=== PATIENT | male | born 1950 | race Caucasian/White ===

== ENCOUNTER 2017-06-24 15:05 | Emergency (ER) | payer MEDICARE ==
[2017-06-24] MEDS ORDERED: Aspirin 81 MG Tab.Chew PO ONE ×2 (15:08→15:10)
[2017-06-24] MEDS ORDERED: Sodium Chloride 0.9% 10 ML Syringe FLUSH PRN (15:12)
[2017-06-24] MEDS ORDERED: Sodium Chloride 0.9% 2.5 ML Syringe FLUSH PRN (15:12)
--- NOTE | 2017-06-24 15:21 | EDM.PDOC ---
<Dilcia Acosta - Last Filed: 06/24/17 17:47> ED HPI GENERAL MEDICAL PROBLEM - General Chief Complaint: Chest Pain Stated Complaint: CHEST PAIN Time Seen by Provider: 06/24/17 15:10 Source of Information: Reports: Patient History Limitations: Reports: No Limitations - History of Present Illness INITIAL COMMENTS - FREE TEXT/NARRATIVE: HISTORY AND PHYSICAL: History of present illness: [Patient comes to the emergency room with complaints of tightness in his chest. Onset was approximately one hour ago when he was pulling fence posts. He felt a tightness in his mid chest, that he describes as sharp and crushing, immediately after pulling out a fence post. Denies radiation of pain to his neck , jaw, shoulder or back. Describes as a feeling of indigestion, or like a gas bubble stuck in his upper abdomen but he is unable to belch. Had some shortness of breath with the onset of pain. He drove himself to the ER after taking 2 baby aspirin at home. Denies any cardiac history. Does not take any medications regularly. Review of systems: As per history of present illness and below otherwise all systems reviewed and negative. Past medical history: As per history of present illness and as reviewed below otherwise noncontributory. Surgical history: As per history of present illness and as reviewed below otherwise noncontributory. Social history: No reported history of drug or alcohol abuse. Family history: As per history of present illness and as reviewed below otherwise noncontributory. Physical exam: Gen.: Well-developed well-nourished male in no acute distress. Is diaphoretic upon presentation to the ER. HEENT: Atraumatic, normocephalic. Oral mucous membranes moist. Lungs: Clear to auscultation, breath sounds equal bilaterally. Heart: S1S2, regular rate rhythm. No murmur gallop click or rub. Abdomen: Soft, nondistended, nontender. Negative for masses guarding or rebound. Pelvis: Stable nontender. Genitourinary: Deferred. Rectal: Deferred. Extremities: Atraumatic, negative for cords or calf pain. Neurovascular unremarkable. Neuro: Awake, alert, oriented. Motor and sensory unremarkable throughout. Exam nonfocal. Diagnostics: [EKG, chest x-ray, CBC, CMP, troponin, PT/INR] Therapeutics: [Aspirin 162 mg, nitroglycerin 0.4 mg every 5 minutes, heparin 5000 units, TnKase] Impression: [chest pain] Plan: [ Dr. Celestin, jammer hooker, is in the emergency room and agrees to consult on this patient. He reviews all EKGs and is informed of negative troponin. Pain is not improved with morphine 2 mg or nitroglycerin 3. Heparin 5000 IU given IV. Patient continues to have 4-5/[address] Brantley initiates thrombolytics while patient is in the ER. Patient will be transferred to [facility] to Dr. Catalan in the ER after phone consultation with Dr. Valencia, jammer hooker. Patient will be flown via helicopter. Patient in agreement with this plan. All of his questions are answered and concerns are addressed. ] Definitive disposition and diagnosis as appropriate pending reevaluation and review of above. Right Chest Pain Score (Numeric/FACES): 5 - Related Data Allergies Allergy/AdvReac Type Severity Reaction Status Date / Time No Known Allergies Allergy Verified 06/24/17 15:08 Home Meds: Home Meds . [No Known Home Meds] 06/24/17 [History] Past Medical History - Past Health History Medical/Surgical History: Denies Medical/Surgical History ED ROS GENERAL - Review of Systems Review Of Systems: ROS reveals no pertinent complaints other than HPI. ED EXAM, GENERAL - Physical Exam Exam: See Below Course - Vital Signs Last Recorded V/S: Last Vital Signs Temp 35.8 C 06/24/17 15:08 Pulse 99 06/24/17 15:08 Resp 20 06/24/17 15:08 BP 158/108 H 06/24/17 15:42 Pulse Ox 99 06/24/17 15:08 - Orders/Labs/Meds Orders: Active Orders 24 hr Category Date Time Status EKG 12 Lead [EKG Documentation Completion] [RC] STAT Care 06/24/17 15:48 Active EKG Documentation Completion [RC] STAT Care 06/24/17 15:12 Active EKG Documentation Completion [RC] STAT Care 06/24/17 17:08 Active Heparin Sod,Pork In 0.45% Nacl [Heparin-1/2Ns 25,000 Med 06/24/17 17:45 Active Units/500] 25,000 unit in 500 ml IV TITRATE Sodium Chloride 0.9% [Saline Flush] Med 06/24/17 15:12 Active 10 ml FLUSH ASDIRECTED PRN Sodium Chloride 0.9% [Saline Flush] Med 06/24/17 15:12 Active 2.5 ml FLUSH ASDIRECTED PRN Peripheral IV Insertion Adult [OM.PC] Stat Oth 06/24/17 15:12 Ordered Medication Orders Heparin Sod,Pork In 0.45% Nacl (Heparin-1/2ns 25,000 Units/500) 25,000 unit in 500 mls @ 28.304 mls/hr IV TITRATE RENEE; 12 UNITS/KG/HR PRN Reason: Protocol Sodium Chloride (Saline Flush) 10 ml FLUSH ASDIRECTED PRN PRN Reason: Keep Vein Open Sodium Chloride (Saline Flush) 2.5 ml FLUSH ASDIRECTED PRN PRN Reason: Keep Vein Open Labs: Laboratory Tests 06/24/17 06/24/17 06/24/17 Range/Units 15:10 15:10 15:10 WBC 11.90 H (4.0-11.0) K/uL RBC 5.09 (4.50-5.90) M/uL Hgb 15.0 (13.0-17.0) g/dL Hct 44.1 (38.0-50.0) % MCV 86.6 (80.0-98.0) fL MCH 29.5 (27.0-32.0) pg MCHC 34.0 (31.0-37.0) g/dL RDW Std Deviation 48.3 (28.0-62.0) fl RDW Coeff of Liliana 15 (11.0-15.0) % Plt Count 276 (150-400) K/uL MPV 10.20 (7.40-12.00) fL Neut % (Auto) 72.2 (48.0-80.0) % Lymph % (Auto) 17.0 (16.0-40.0) % [place] % (Auto) 9.1 (0.0-15.0) % Eos % (Auto) 1.4 (0.0-7.0) % Baso % (Auto) 0.3 (0.0-1.5) % Neut # (Auto) 8.6 H (1.4-5.7) K/uL Lymph # (Auto) 2.0 (0.6-2.4) K/uL [place] # (Auto) 1.1 H (0.0-0.8) K/uL Eos # (Auto) 0.2 (0.0-0.7) K/uL Baso # (Auto) 0.0 (0.0-0.1) K/uL Nucleated RBC % 0.0 /100WBC Nucleated RBCs # 0 K/uL INR 1.05 (0.86-1.11) Sodium 144 (136-146) mmol/L Potassium 3.6 (3.5-5.1) mmol/L Chloride 106 (98-110) mmol/L Carbon Dioxide 26 (21-31) mmol/L BUN 17 (6.0-23.0) mg/dL Creatinine 1.5 (0.6-1.5) mg/dL Est Cr Clr Drug Dosing 54.80 mL/min Estimated GFR (MDRD) 46.5 ml/min Glucose 119 H (60-110) mg/dL Calcium 10.1 (8.8-10.8) mg/dL Total Bilirubin 0.9 (0.1-1.5) mg/dL AST 32 (5-40) IU/L ALT 22 (8-54) IU/L Alkaline Phosphatase 90 (40-150) Troponin I (0.0-0.29) NG/ML Total Protein 7.6 (6.0-8.0) g/dL Albumin 4.6 (3.4-4.8) g/dL Globulin 3.0 (2.0-3.5) g/dL Albumin/Globulin Ratio 1.5 (1.3-2.8) 06/24/17 06/24/17 Range/Units 15:10 17:27 WBC (4.0-11.0) K/uL RBC (4.50-5.90) M/uL Hgb (13.0-17.0) g/dL Hct (38.0-50.0) % MCV (80.0-98.0) fL MCH (27.0-32.0) pg MCHC (31.0-37.0) g/dL RDW Std Deviation (28.0-62.0) fl RDW Coeff of Liliana (11.0-15.0) % Plt Count (150-400) K/uL MPV (7.40-12.00) fL Neut % (Auto) (48.0-80.0) % Lymph % (Auto) (16.0-40.0) % [place] % (Auto) (0.0-15.0) % Eos % (Auto) (0.0-7.0) % Baso % (Auto) (0.0-1.5) % Neut # (Auto) (1.4-5.7) K/uL Lymph # (Auto) (0.6-2.4) K/uL [place] # (Auto) (0.0-0.8) K/uL Eos # (Auto) (0.0-0.7) K/uL Baso # (Auto) (0.0-0.1) K/uL Nucleated RBC % /100WBC Nucleated RBCs # K/uL INR (0.86-1.11) Sodium (136-146) mmol/L Potassium (3.5-5.1) mmol/L Chloride (98-110) mmol/L Carbon Dioxide (21-31) mmol/L BUN (6.0-23.0) mg/dL Creatinine (0.6-1.5) mg/dL Est Cr Clr Drug Dosing mL/min Estimated GFR (MDRD) ml/min Glucose (60-110) mg/dL Calcium (8.8-10.8) mg/dL Total Bilirubin (0.1-1.5) mg/dL AST (5-40) IU/L ALT (8-54) IU/L Alkaline Phosphatase (40-150) Troponin I < 0.10 1.01 H* (0.0-0.29) NG/ML Total Protein (6.0-8.0) g/dL Albumin (3.4-4.8) g/dL Globulin (2.0-3.5) g/dL Albumin/Globulin Ratio (1.3-2.8) Meds: Medications Generic Name Dose Route Start Last Admin Trade Name Freq PRN Reason Stop Dose Admin Heparin Sod,Pork In 0.45% Nacl 25,000 unit in 500 mls @ 28.304 mls/hr 17:45 Heparin-1/2ns 25,000 Units/500 IV TITRATE RENEE Protocol 12 UNITS/KG/HR Sodium Chloride 10 ml 06/24/17 15:12 Saline Flush FLUSH ASDIRECTED PRN Keep Vein Open Sodium Chloride 2.5 ml 06/24/17 15:12 Saline Flush FLUSH ASDIRECTED PRN Keep Vein Open Discontinued Medications Generic Name Dose Route Start Last Admin Trade Name Khris PRN Reason Stop Dose Admin Aspirin 324 mg 06/24/17 15:08 06/24/17 15:23 Aspirin PO 06/24/17 15:09 Not Given ONETIME ONE Aspirin 162 mg 06/24/17 15:10 06/24/17 15:20 Aspirin PO 06/24/17 15:11 162 mg ONETIME ONE Administration Heparin Sodium (Porcine) 5,000 units 06/24/17 17:21 Heparin Sodium IVPUSH 06/24/17 17:22 ONETIME ONE Heparin Sodium (Porcine) 4,000 units 06/24/17 17:41 06/24/17 17:47 Heparin Sodium IVPUSH 06/24/17 17:42 4,000 units .BOLUS ONE Administration Heparin Sod,Pork In 0.45% Nacl Confirm 06/24/17 17:44 06/24/17 17:50 Heparin-1/2ns 25,000 Units/500 Administered 06/24/17 17:45 1,000 unit Dose Administration 25,000 unit in 500 mls @ as directed IV .STK-MED ONE Morphine Sulfate 2 mg 06/24/17 15:42 06/24/17 15:47 Morphine IVPUSH 06/24/17 15:43 2 mg ONETIME ONE Administration Nitroglycerin 0.4 mg 06/24/17 15:08 06/24/17 15:42 Nitrostat SL 06/24/17 15:19 0.4 mg Q5M PRN Administration Chest Pain Nitroglycerin Confirm 06/24/17 17:45 06/24/17 17:53 Nitro-Bid 2% Administered 06/24/17 17:46 1 gm Dose Administration 1 gm .ROUTE .STK-MED ONE Ondansetron HCl 4 mg 06/24/17 15:42 06/24/17 17:53 Zofran IVPUSH 06/24/17 15:43 Not Given ONETIME ONE Tenecteplase Confirm 06/24/17 17:30 06/24/17 17:48 Tnkase Administered 08/23/17 17:31 50 mg Dose Administration 50 mg .ROUTE .STK-MED ONE Departure - Departure Time of Disposition: 17:50 Disposition: DC/Tfer to Acute Hospital 02 Reason for Transfer *Q: Primary PCI Indicated Condition: Fair Clinical Impression: Acute coronary syndrome Referrals: PCP,Unknown [Primary Care Provider] - Forms: ED Department Discharge <Bishop Brantley - Last Filed: 06/24/17 18:19> ED HPI GENERAL MEDICAL PROBLEM - History of Present Illness INITIAL COMMENTS - FREE TEXT/NARRATIVE: Local cardiology Dr. Celestin was consulted in the emergency department shortly after patient's arrival first and second EKGs were reviewed with Dr. Celestin he was made aware of patient's ongoing pain at this time recommendation was continue current therapy and finish cardiac workup. Dr. Celestin was reconsult as an informed that initial troponin was negative patient had some improvement but was still having ongoing pain Dr. Celestin return to ED for reevaluation 30 EKG at this time does show more significant dynamic changes transfer was initiated Dr. MONTIEL jammer hooker did discuss case with Dr. Valencia receiving jammer hooker to [facility] transfer via [facility] was agreed upon no further orders or recommendations were given at that time. I recontacted Dr. Valencia regarding my concerns and if consideration was given to thrombolytic initiation in ED prior to transfer. Dr. Valencia informed me that decision should be made by our jammer hooker I suggested that I believe are jammer hooker may have been deferent to Dr. Valencia considering he is receiving jammer hooker and interventional considerations I then suggested that I send serial EKGs to Dr. Valencia for his review this was done per his request. I was not recontacted by Dr. Valencia regarding these EKGs. In light of what I believe to be dynamic changes and ongoing pain I discussed with patient thrombolytics patient and agree thrombolytics were initiated and given by myself per protocol patient remained hemodynamically stable and was transferred by [facility]. I did notify receiving ER physician Dr. Catalan I discussed above with Dr. Catalan so as to make him aware the patient did receive thrombolytics so as to inform Dr. Valencia cardiology and update him. Departure - Departure Reason for Transfer *Q: Other Condition: Serious
[2017-06-24] MEDS: Nitroglycerin 0.4 MG Tab.SL SL PRN ×3 (15:22→15:42)
[2017-06-24] MEDS ORDERED: Morphine 2 MG/ML Syringe IVPUSH ONE (15:42)
[2017-06-24 15:45] VITALS: BP 158/108
[2017-06-24] MEDS: Ondansetron 4 MG/2 ML SDV IVPUSH ONE ×2 (15:46→17:53)
--- NOTE | 2017-06-24 16:22 | CR ---
EXAMINATION: Two-view chest (PA and Lateral views). HISTORY: Chest pain. FINDINGS: The trachea is midline. The cardiomediastinal silhouette is within normal limits. There is a trace l eft basilar atelectasis. No pleural effusion or pneumothorax. Osseous structures appear unremarkable. IMPRESSION: No acute cardiopulmonary process.
[2017-06-24] MEDS ORDERED: Heparin Sodium 5,000 Units/ML Vial IVPUSH ONE ×2 (17:21→17:41)
[2017-06-24] MEDS ORDERED: Tenecteplase 50 MG Kit ONE (17:30)
[2017-06-24] MEDS ORDERED: Heparin Sod,Pork In 0.45% Nacl 25,000 UNIT/500 ML IV.SOLN IV ONE (17:44)
[2017-06-24] MEDS ORDERED: Nitroglycerin 2% Oint 1 GM UD Packet ONE (17:45)
[2017-06-24] MEDS ORDERED: Heparin Sod,Pork In 0.45% Nacl 25,000 UNIT/500 ML IV.SOLN IV SCH (17:45)
--- NOTE | 2017-06-25 00:34 | CONS ---
DATE OF CONSULTATION: DATE OF : 1950 PRIMARY CARE PHYSICIAN: None PCP REASON FOR CONSULTATION: Chest pain and ST changes. HISTORY OF PRESENT ILLNESS: This is a 66-year-old male, who has not seen a doctor for a long time, presented to the hospital due to squeezing chest pain. 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 It was probably 8/10 pain scale. He got three nitro and it does seem to help with the chest pain slightly. Currently, he said he has chest pain around 3/10 pain scale. Initially his EKG show sinus rhythm with a right bundle - branch block pattern, however, there are ST abnormalities, especially in V2 and V3, questioning in lead III, and then a repeated EKG around 3:[address] changes in V2, otherwise the ST changes in V3 and V4, V5, V6 seemed to be unchanged as well as III and aVF, and then the repeat another one the third EKG at 5:[address]-segment was more elavted in V3 as well as there was some ST changes in V2 that make me really concerned about the actual STEMI in regard of pre-existing ST abnormalities. We do not have the prior EKG to compare, however, his first troponin was negative. He still has a chest pain and we have talked to Dr. Valencia the Interventionalist in [place], he did not recommend a tPA, however, he recommended transfer. PAST MEDICAL HISTORY: Unknown. SOCIAL HISTORY: He denies smoking, drinking, or drug use. FAMILY HISTORY: Noncontributory. REVIEW OF SYSTEMS: 12 points review of system were negative except chest pain. PHYSICAL EXAMINATION: VITAL SIGN: Blood pressure 181/124 and heart rate of 99 RR 18 temp 37 C. HEENT: No pale. No jaundice. No JVD. HEART: Normal S1, S2. No murmur. LUNGS: Clear. ABDOMEN: Soft, nontender. Bowel sounds are present. No hepatosplenomegaly. DIAGNOSTIC DATA: EKG, like I mentioned in the HPI, there was concern about ST elevation. Troponin was positive at 1. ASSESSMENT AND PLAN: This is a 66-year-old male without apparent cardiac history. However, the patient has not seen a doctor for a long time. With elevation troponin ST- elevation in V2, V3, he would need to be transferred to the tertiary care center for emergent cardiac catheterization. He need to get thrombolytic therapy as well as heparin, aspirin, and Plavix. JAZMÍN / MASTER /[id number] MTDD
== END 2017-06-24 18:00 ==
LOC: MW.ED 15:05
DX: I24.9 Acute ischemic heart disease, unspecified (principal)
CPT/HCPCS: 36415; 71020; 80053; 84484; 85025; 85610; 93005; 96374; 96375; 99285; A9270; J1644; J2270; J3101; J2405

== ENCOUNTER 2022-06-26 16:59 | Emergency (ER) | payer MEDICARE ==
[2022-06-26] MEDS ORDERED: Ondansetron 4 MG/2 ML SDV IVPUSH ONE (22:07)
[2022-06-26] MEDS ORDERED: Lactated Ringers 1,000 ML IV ONE (22:07)
[2022-06-26] MEDS ORDERED: Morphine 4 MG/ML VIAL IVPUSH ONE (22:07)
[2022-06-26 22:21] LABS: CARBON DIOXIDE,CO2 27.3 mmol/L (21.0-32.0)
[2022-06-26] MEDS ORDERED: Iopamidol 755 MG/ML 500 ML Multipack Bottle IVPUSH STA (23:16)
[2022-06-27 02:06] VITALS: BP 135/87; PULSE 64
== END 2022-06-27 02:05 | disposition home or self-care (01) ==
LOC: MW.ED 16:59
DX: K81.9 Cholecystitis, unspecified (principal); Z79.82 Long term (current) use of aspirin; Z79.899 Other long term (current) drug therapy; Z20.822 Contact with and (suspected) exposure to COVID-19
CPT/HCPCS: 36415; 74177; 80053; 81001; 85025; 96361; 96374; 96375; 99284; J2270; J2405; J7120; Q9967; U0002